=== PATIENT | female | born 1940 | race Caucasian/White ===

== ENCOUNTER 2021-01-29 09:09 | Emergency (ER) | payer MEDICARE ==
[~2021-01-29] VITALS: Ht 157.5 cm; Wt 63.6 kg
[~2021-01-29 09:09] MED LIST: CALC-674 PO; CHOL100010 PO; CITA20TA28 PO; DABI150C PO; HCTZ25T PO; MULT-785 PO; POTA10TA19 PO
[2021-01-29 09:43] LABS: BASOPHILS # (AUTO) 0.1 X10'3 (0-0.2); BASOPHILS % (AUTO) 0.6 % (0-1); EOSINOPHILS # (AUTO) 0.1 X10'3 (0-0.9); EOSINOPHILS % (AUTO) 0.9 % (0-6); HEMATOCRIT 38.1 % (35.0-45.0); HEMOGLOBIN 12.6 g/dl (12.0-16.0); LYMPHOCYTES # (AUTO) 1.6 X10'3 (1.1-4.8); LYMPHOCYTES % (AUTO) 17.7 % (21-51); MEAN CORPUSCULAR HEMOGLOBIN 32.2 PG (27.0-31.0); MEAN CORPUSCULAR HGB CONC 33.1 g/dL (33.0-36.5); MEAN CORPUSCULAR VOLUME 97.1 FL (78-98); MEAN PLATELET VOLUME 9.1 FL (7.4-10.4); MONOCYTES # (AUTO) 0.8 X10'3 (0-0.9); MONOCYTES % (AUTO) 8.9 % (2-12); NEUTROPHILS # (AUTO) 6.6 X10'3 (1.8-7.7); NEUTROPHILS % (AUTO) 71.9 % (42-75); PLATELET COUNT 298 X10'3 (140-440); RED BLOOD COUNT 3.93 X10'6 (4.20-5.60); RED CELL DISTRIBUTION WIDTH 16.5 % (11.5-14.5); WHITE BLOOD COUNT 9.1 X10'3 (4.5-11.0)
[2021-01-29] MEDS ORDERED: normal saline 1000ml 1,000 ML IV ONE (09:50)
--- NOTE | 2021-01-29 09:51 | NUR ---
Wound irrigated. No closure needed per EMD Ohlfs.
[2021-01-29 09:54] LABS: ALANINE AMINOTRANSFERASE 18 U/L (12-78); ALBUMIN/GLOBULIN RATIO 0.9 (1.1-1.5); ALKALINE PHOSPHATASE 94 IU/L (46-116); ANION GAP 7 (8-16); ASPARTATE AMINO TRANSFERASE 25 U/L (10-37); BILIRUBIN,TOTAL 0.3 MG/DL (0.1-1.0); BLOOD UREA NITROGEN 14 MG/DL (7-18); BUN/CREATININE RATIO 17.7 (6.6-38.0); CALCIUM 8.1 MG/DL (8.5-10.1); CHLORIDE 105 MMOL/L (99-107); CREATININE 0.79 MG/DL (0.40-0.90); GLUCOSE 90 MG/DL (70-104); SODIUM 141 MMOL/L (135-145); TOTAL CARBON DIOXIDE 29.4 MMOL/L (24-32); TOTAL PROTEIN 6.5 G/DL (6.4-8.2); eGFR 70 ML/MIN
[2021-01-29] MEDS ORDERED: potassium Cl 20 mEq SR tablet PO STA (09:57)
[2021-01-29 11:07] VITALS: BP 142/56
[2021-01-29 11:26] LABS: CLARITY,URINE SLIGHTLY CLOUDY (Clear); COLOR,URINE YELLOW (Yellow); GLUCOSE, URINE NEGATIVE (Neg); KETONES,URINE TRACE mg/dl (Neg); LEUKOCYTE ESTERASE ,URINE SMALL (Neg); NITRITES, URINE POSITIVE (Neg); OCCULT BLOOD,URINE NEGATIVE (Neg); PH,URINE 5.5 (4.8-8.0); PROTEIN,URINE NEGATIVE (Neg)
[2021-01-29 11:28] LABS: UA COLLECTION TYPE CLN CATCH MIDSTREAM
[2021-01-29 11:46] LABS: MUCUS STRANDS FEW /LPF (Neg); SQUAMOUS EPITHELIAL CELL,UR MANY /LPF (FEW)
[2021-01-29 11:47] LABS: WBC,URINE 20-30 /HPF (0-4)
[2021-01-29 11:49] LABS: BACTERIA,URINE 2+ /HPF (Neg); RBC,URINE NONE SEEN /HPF (0-2)
[2021-01-29] MEDS ORDERED: CefTRIAXone 2gm/D5W 50ml BAG 50 ML IV ONE (12:15)
[2021-01-29] MEDS ORDERED: CEPH-585 PO (12:19)
[2021-01-29] MEDS ORDERED: POTA20TA19 PO (12:34)
== END 2021-01-29 13:41 | disposition home or self-care (01) ==
LOC: ER 09:09
DX: S01.01XA Laceration without foreign body of scalp, initial encounter (principal); E87.6 Hypokalemia; N39.0 Urinary tract infection, site not specified; R55 Syncope and collapse; M25.562 Pain in left knee; M25.462 Effusion, left knee; R41.0 Disorientation, unspecified; I48.91 Unspecified atrial fibrillation; I10 Essential (primary) hypertension; Z72.89 Other problems related to lifestyle; Z98.890 Other specified postprocedural states; Z88.8 Allergy status to other drugs, medicaments and biological substances; Z79.2 Long term (current) use of antibiotics; Z79.899 Other long term (current) drug therapy; W22.8XXA Striking against or struck by other objects, initial encounter; Y93.89 Activity, other specified; Y92.89 Other specified places as the place of occurrence of the external cause; Y99.8 Other external cause status
CPT/HCPCS: 36415; 70450; 71045; 80053; 81001; 83605; 83880; 84145; 84484; 85025; 93005; 96365; 99285; J0696; J7030

== ENCOUNTER 2021-08-27 11:06 | Inpatient (IN) | payer MEDICARE, BC ==
[~2021-08-27] VITALS: Ht 157.5 cm; Wt 59.9 kg
[~2021-08-27 11:06] MED LIST changes: +CEPH-585 PO; +POTA-192 PO; -POTA10TA19 PO
[2021-08-27 12:27] LABS: BASOPHILS % (AUTO) 0.5 % (0-1); EOSINOPHILS # (AUTO) 0.1 X10'3 (0-0.9); EOSINOPHILS % (AUTO) 0.7 % (0-6); HEMOGLOBIN 12.8 g/dl (12.0-16.0); LYMPHOCYTES # (AUTO) 1.5 X10'3 (1.1-4.8); MEAN CORPUSCULAR HEMOGLOBIN 32.9 PG (27.0-31.0); MEAN CORPUSCULAR HGB CONC 32.9 g/dL (33.0-36.5); MEAN CORPUSCULAR VOLUME 100.2 FL (78-98); MEAN PLATELET VOLUME 9.8 FL (7.4-10.4); MONOCYTES # (AUTO) 0.6 X10'3 (0-0.9); MONOCYTES % (AUTO) 6.8 % (2-12); NEUTROPHILS # (AUTO) 6.3 X10'3 (1.8-7.7); PLATELET COUNT 262 X10'3 (140-440); RED BLOOD COUNT 3.89 X10'6 (4.20-5.60); RED CELL DISTRIBUTION WIDTH 14.7 % (11.5-14.5); WHITE BLOOD COUNT 8.5 X10'3 (4.5-11.0)
[2021-08-27] MEDS ORDERED: LIDOcaine 1% W/epiNEPHrine 1:200,000 10ml vial IJ ONE (12:30)
[2021-08-27] MEDS ORDERED: TETanus/Pertussis (Acell)/Diphther VAC/PF (Tdap-Adult) 0.5ml syringe IMVAC ONE (12:30)
[2021-08-27] MEDS ORDERED: LIDOcaine 1% W/epiNEPHrine 1:100,000 20ml vial IJ ONE (12:35)
[2021-08-27 12:57] LABS: ALANINE AMINOTRANSFERASE 23 U/L (12-78); ALBUMIN 2.8 G/DL (3.4-5.0); ALBUMIN/GLOBULIN RATIO 0.8 (1.1-1.5); ALKALINE PHOSPHATASE 78 IU/L (46-116); ANION GAP 6 (8-16); ASPARTATE AMINO TRANSFERASE 27 U/L (10-37); BILIRUBIN,TOTAL 0.3 MG/DL (0.1-1.0); BLOOD UREA NITROGEN 11 MG/DL (7-18); BUN/CREATININE RATIO 16.4 (6.6-38.0); CALCIUM 7.7 MG/DL (8.5-10.1); CHLORIDE 110 MMOL/L (99-107); CREATININE 0.67 MG/DL (0.40-0.90); GLUCOSE 88 MG/DL (70-104); POTASSIUM 3.1 MMOL/L (3.5-5.1); SODIUM 141 MMOL/L (135-145); TOTAL CARBON DIOXIDE 25.1 MMOL/L (24-32); TOTAL PROTEIN 6.3 G/DL (6.4-8.2); eGFR 85 ML/MIN
[2021-08-27] MEDS ORDERED: potassium Cl 20 mEq SR tablet PO STA (13:48)
[2021-08-27] MEDS ORDERED: CARSR60C PO (14:06)
[2021-08-27] MEDS ORDERED: ondansetron/PF 4mg/2ml inj IV PRN (14:25)
[2021-08-27] MEDS ORDERED: potassium CL 10mEq/100ml bag 100 ML IV PRN (14:25)
[2021-08-27] MEDS ORDERED: PERFLUTREN PROTEIN-A MICROSPHR (Optison) 0.22 MG/ML 3ML VIAL IV ONE (14:25)
[2021-08-27] MEDS ORDERED: magnesium hydroxide 30ml (MOM) UD suspension PO PRN (14:25)
[2021-08-27] MEDS ORDERED: potassium Cl 20 mEq SR tablet PO PRN (14:25)
[2021-08-27] MEDS ORDERED: magnesium 4gm in 100ml NS 100 ML IV PRN (14:25)
[2021-08-27] MEDS ORDERED: acetaminophen 325mg tablet PO PRN (14:25)
[2021-08-27] MEDS ORDERED: magnesium 2GM in 50ml NS 50 ML IV PRN (14:25)
--- NOTE | 2021-08-27 15:28 | NUR ---
per us tech pt had a period of breadycardia when us was being done but recovered and had no loc
--- NOTE | 2021-08-27 16:45 | NUR ---
Patient in room PCU 3014. I have received report from Brandin and had the opportunity to ask questions and assume patient care.
[2021-08-27 17:50] VITALS: BP 139/78
[2021-08-27 18:00] VITALS: BP 134/79
--- NOTE | 2021-08-27 18:46 | NUR ---
Problems reprioritized. Patient report given, questions answered & plan of care reviewed with Kajal.
--- NOTE | 2021-08-27 18:47 | NUR ---
Patient received on the unit at 1745 with no distress noted. Family at bedside at the time. She was situated in bed with vital signs taken. Admissions supplies given. Meal tray ordered. She denied pain and any other needs. Call light in reach.
[2021-08-27 20:00] VITALS: BP 121/63
[2021-08-27] MEDS: K and/or MAG REPLACEMENT MC SCH (20:00)
[2021-08-27] MEDS ORDERED: [UNRECOGNIZED DRUG - OTHER] PO SCH (20:00)
[2021-08-27] MEDS ORDERED: CALCIUM CITRATE PO SCH (20:00)
[2021-08-27] MEDS: potassium Cl 20 mEq SR tablet PO PRN (21:06)
[2021-08-27] MEDS: docusate sod 100mg capsule PO SCH (21:07)
[2021-08-27 22:00] VITALS: BP 112/56
[2021-08-28] VITALS (8 sets, daily range): BP systolic 111–163; BP diastolic 61–77
[2021-08-28] MEDS: potassium Cl 20 mEq SR tablet PO PRN ×2 (01:05→05:41)
--- NOTE | 2021-08-28 06:34 | NUR ---
Patient in room PCU 3014. I have received report from Kajal and had the opportunity to ask questions and assume patient care.
[2021-08-28 06:48] LABS: BASOPHILS # (AUTO) 0.1 X10'3 (0-0.2); BASOPHILS % (AUTO) 0.9 % (0-1); EOSINOPHILS # (AUTO) 0.1 X10'3 (0-0.9); EOSINOPHILS % (AUTO) 1.4 % (0-6); HEMATOCRIT 37.1 % (35.0-45.0); HEMOGLOBIN 12.4 g/dl (12.0-16.0); LYMPHOCYTES # (AUTO) 1.7 X10'3 (1.1-4.8); LYMPHOCYTES % (AUTO) 21.4 % (21-51); MEAN CORPUSCULAR HEMOGLOBIN 33.3 PG (27.0-31.0); MEAN CORPUSCULAR HGB CONC 33.3 g/dL (33.0-36.5); MEAN CORPUSCULAR VOLUME 99.8 FL (78-98); MEAN PLATELET VOLUME 10.3 FL (7.4-10.4); MONOCYTES # (AUTO) 0.7 X10'3 (0-0.9); MONOCYTES % (AUTO) 8.7 % (2-12); NEUTROPHILS # (AUTO) 5.5 X10'3 (1.8-7.7); NEUTROPHILS % (AUTO) 67.6 % (42-75); PLATELET COUNT 243 X10'3 (140-440); RED BLOOD COUNT 3.72 X10'6 (4.20-5.60); RED CELL DISTRIBUTION WIDTH 14.6 % (11.5-14.5); WHITE BLOOD COUNT 8.1 X10'3 (4.5-11.0)
--- NOTE | 2021-08-28 06:59 | NUR ---
Problems reprioritized. Patient report given, questions answered & plan of care reviewed with NYDIA Schaefer.K+ replacement completed,for K+ of 3.1. To monitor labs.
[2021-08-28 07:06] LABS: ALANINE AMINOTRANSFERASE 21 U/L (12-78); ALBUMIN 2.7 G/DL (3.4-5.0); ALBUMIN/GLOBULIN RATIO 0.8 (1.1-1.5); ALKALINE PHOSPHATASE 76 IU/L (46-116); ANION GAP 6 (8-16); ASPARTATE AMINO TRANSFERASE 19 U/L (10-37); BILIRUBIN,TOTAL 0.5 MG/DL (0.1-1.0); BLOOD UREA NITROGEN 10 MG/DL (7-18); BUN/CREATININE RATIO 14.1 (6.6-38.0); CHLORIDE 112 MMOL/L (99-107); CREATININE 0.71 MG/DL (0.40-0.90); GLUCOSE 76 MG/DL (70-104); POTASSIUM 3.3 MMOL/L (3.5-5.1); SODIUM 144 MMOL/L (135-145); TOTAL CARBON DIOXIDE 25.8 MMOL/L (24-32); TOTAL PROTEIN 5.9 G/DL (6.4-8.2); eGFR 79 ML/MIN
[2021-08-28 07:56] LABS: PLATELET ESTIMATE NORMAL
[2021-08-28 07:58] LABS: LARGE PLATELETS FEW
[2021-08-28 07:59] LABS: ACANTHOCYTES 1+; BURR CELLS 2+; POLYCHROMASIA FEW; SCHISTOCYTES FEW
[2021-08-28] MEDS: K and/or MAG REPLACEMENT MC SCH ×4 (08:00→20:32)
[2021-08-28] MEDS: calcium carbonate/vitamin D3 tablet PO SCH ×2 (08:44→17:38)
[2021-08-28] MEDS: cholecalciferol (vitamin D3) 1,000 unit (25mcg) tablet PO SCH (08:44)
[2021-08-28] MEDS: docusate sod 100mg capsule PO SCH ×2 (08:44→20:28)
[2021-08-28] MEDS: HYDROchlorothiazide 25mg tablet PO SCH (08:44)
[2021-08-28] MEDS: citalopram 20mg tablet PO SCH (08:44)
[2021-08-28] MEDS: multivitamins, therapeutics tablet PO SCH (08:45)
[2021-08-28] MEDS ORDERED: magnesium 4gm in 100ml NS 100 ML IV PRN (09:20)
[2021-08-28] MEDS ORDERED: potassium Cl 20 mEq SR tablet PO PRN ×2 (09:20)
[2021-08-28] MEDS ORDERED: potassium CL 10mEq/100ml bag 100 ML IV PRN (09:20)
[2021-08-28] MEDS ORDERED: magnesium Cl slow-release 64mg tablet PO PRN (09:20)
[2021-08-28] MEDS ORDERED: magnesium 2GM in 50ml NS 50 ML IV PRN (09:20)
[2021-08-28 12:39] LABS: MAGNESIUM 2.1 MG/DL (1.5-2.4); POTASSIUM 4.1 MMOL/L (3.5-5.1)
--- NOTE | 2021-08-28 18:05 | NUR ---
Problems reprioritized. Patient report given, questions answered & plan of care reviewed with Deya.
[2021-08-29 02:00] VITALS: BP 135/84
[2021-08-29 06:00] VITALS: BP 126/85
--- NOTE | 2021-08-29 06:34 | NUR ---
Patient in room PCU 3014. I have received report from Liz and had the opportunity to ask questions and assume patient care.
[2021-08-29 06:48] LABS: BASOPHILS # (AUTO) 0.1 X10'3 (0-0.2); BASOPHILS % (AUTO) 0.6 % (0-1); EOSINOPHILS # (AUTO) 0.1 X10'3 (0-0.9); HEMATOCRIT 38.5 % (35.0-45.0); HEMOGLOBIN 12.9 g/dl (12.0-16.0); LYMPHOCYTES # (AUTO) 1.7 X10'3 (1.1-4.8); MONOCYTES # (AUTO) 0.9 X10'3 (0-0.9); RED BLOOD COUNT 3.83 X10'6 (4.20-5.60)
[2021-08-29 06:51] LABS: EOSINOPHILS % (AUTO) 1.6 % (0-6); LYMPHOCYTES % (AUTO) 19.5 % (21-51); MEAN CORPUSCULAR HEMOGLOBIN 33.7 PG (27.0-31.0); MEAN CORPUSCULAR HGB CONC 33.5 g/dL (33.0-36.5); MEAN CORPUSCULAR VOLUME 100.5 FL (78-98); MEAN PLATELET VOLUME 10.4 FL (7.4-10.4); MONOCYTES % (AUTO) 9.6 % (2-12); NEUTROPHILS # (AUTO) 6.1 X10'3 (1.8-7.7); NEUTROPHILS % (AUTO) 68.7 % (42-75); PLATELET COUNT 248 X10'3 (140-440); RED CELL DISTRIBUTION WIDTH 14.7 % (11.5-14.5); WHITE BLOOD COUNT 8.9 X10'3 (4.5-11.0)
[2021-08-29 07:16] LABS: ALANINE AMINOTRANSFERASE 21 U/L (12-78); ALBUMIN 2.8 G/DL (3.4-5.0); ALBUMIN/GLOBULIN RATIO 0.9 (1.1-1.5); ALKALINE PHOSPHATASE 86 IU/L (46-116); ANION GAP 5 (8-16); ASPARTATE AMINO TRANSFERASE 23 U/L (10-37); BILIRUBIN,TOTAL 0.4 MG/DL (0.1-1.0); BLOOD UREA NITROGEN 11 MG/DL (7-18); BUN/CREATININE RATIO 15.5 (6.6-38.0); CALCIUM 8.2 MG/DL (8.5-10.1); CHLORIDE 109 MMOL/L (99-107); CREATININE 0.71 MG/DL (0.40-0.90); GLUCOSE 82 MG/DL (70-104); MAGNESIUM 1.9 MG/DL (1.5-2.4); POTASSIUM 3.8 MMOL/L (3.5-5.1); SODIUM 142 MMOL/L (135-145); TOTAL CARBON DIOXIDE 28.1 MMOL/L (24-32); TOTAL PROTEIN 5.9 G/DL (6.4-8.2); eGFR 79 ML/MIN
[2021-08-29 08:00] VITALS: BP_SYST 115; BP_SYST 125; BP_SYST 143; BP_DIAS 77; BP_DIAS 85; BP_DIAS 94
[2021-08-29] MEDS: K and/or MAG REPLACEMENT MC SCH ×2 (08:00→08:08)
[2021-08-29] MEDS: multivitamins, therapeutics tablet PO SCH (08:06)
[2021-08-29] MEDS: citalopram 20mg tablet PO SCH (08:06)
[2021-08-29] MEDS: docusate sod 100mg capsule PO SCH (08:06)
[2021-08-29] MEDS: calcium carbonate/vitamin D3 tablet PO SCH (08:07)
[2021-08-29] MEDS: cholecalciferol (vitamin D3) 1,000 unit (25mcg) tablet PO SCH (08:07)
[2021-08-29] MEDS: HYDROchlorothiazide 25mg tablet PO SCH (08:07)
[2021-08-29 09:11] LABS: PLATELET ESTIMATE NORMAL
[2021-08-29 09:12] LABS: BURR CELLS 1+
[2021-08-29 09:13] LABS: ACANTHOCYTES 2+; LARGE PLATELETS FEW
[2021-08-29 11:00] VITALS: BP 108/81
--- NOTE | 2021-08-29 13:24 | NUR ---
Patient discharged from facility. Discharged instruction provided to patient and daughter about medication and follow up appointments. Patient and daughter verbalized understanding. IV discontinue from patient arm. Patient left the facility with daughter. Patient left with all belongings.
[2021-08-30] MEDS ORDERED: HYDR12.55 PO (17:02)
[2021-08-30] MEDS ORDERED: SOLI5TAB2 PO (17:02)
[2021-08-30] MEDS ORDERED: CYAN10006 IM (17:02)
[2021-08-30] MEDS ORDERED: LORA10TA7 PO (17:02)
[2021-08-30] MEDS ORDERED: CALC600T22 PO (17:02)
[2021-08-31] MEDS ORDERED: CEPH250T PO (09:18)
== END 2021-08-29 13:24 | disposition home or self-care (01) | DRG 310 ==
LOC: ER 11:07 → ED HOLD 14:30 → EDBEDREQ 15:34 → CANBEDREQ 15:35 → PCU 3S 17:28
PROVIDERS: ADMIT Family Medicine; ATTEND Family Medicine
PROC: 0HQ0XZZ Repair Scalp Skin, External Approach (ICD-10-PCS; principal; 2021-08-27)
PROC: 3E0234Z Introduction of Serum, Toxoid and Vaccine into Muscle, Percutaneous Approach (ICD-10-PCS; 2021-08-27)
DX: R00.1 Bradycardia, unspecified (principal); E87.6 Hypokalemia; I44.0 Atrioventricular block, first degree; D64.9 Anemia, unspecified; I10 Essential (primary) hypertension; S01.01XA Laceration without foreign body of scalp, initial encounter; I08.3 Combined rheumatic disorders of mitral, aortic and tricuspid valves; W07.XXXA Fall from chair, initial encounter; I48.91 Unspecified atrial fibrillation; Z82.49 Family history of ischemic heart disease and other diseases of the circulatory system; Z23 Encounter for immunization; Y93.89 Activity, other specified; Y92.098 Other place in other non-institutional residence as the place of occurrence of the external cause; Y99.8 Other external cause status; Z88.5 Allergy status to narcotic agent; Z79.01 Long term (current) use of anticoagulants; Z79.899 Other long term (current) drug therapy; Z90.49 Acquired absence of other specified parts of digestive tract
CPT/HCPCS: 36415; 70450; 72125; 80053; 82948; 83735; 84132; 84484; 85008; 85025; 90471; 90715; 93005; 93306; 93880; 99291; G0378; J3490